=== PATIENT | male | born 1955 | race Two or more races ===

== ENCOUNTER 2018-10-02 15:54 | Emergency (ER) | payer OTHER ==
[~2018-10-02] VITALS: Ht 175.3 cm; Wt 88.5 kg
== END 2018-10-02 22:02 | disposition home or self-care (01) ==
LOC: ER 15:54
DX: K52.89 Other specified noninfective gastroenteritis and colitis (principal)

== ENCOUNTER 2020-04-28 13:41 | Outpatient (CLI) | payer OTHER | END 2020-04-28 13:44 | disposition home or self-care (01) | LOC: LAB 13:41 | DX: N20.0 Calculus of kidney (principal) ==

== ENCOUNTER 2020-04-30 07:32 | Outpatient (CLI) | payer OTHER | END 2020-04-30 07:37 | disposition home or self-care (01) | LOC: TOM 07:32 | PROVIDERS: ATTEND Urology | DX: N20.1 Calculus of ureter (principal) | CPT/HCPCS: 74178; Q9965 ==

== ENCOUNTER 2020-05-21 06:18 | Day surgery (SDC) | payer OTHER | END 2020-05-21 12:00 | disposition home or self-care (01) | LOC: CIR.AMB 06:18 → ADM 10:00 → CIR.AMB 12:00 → ADM 12:45 | PROVIDERS: ATTEND Urology | DX: N20.1 Calculus of ureter (principal) ==

== ENCOUNTER 2020-05-27 07:40 | Outpatient (CLI) | payer OTHER | END 2020-05-27 08:05 | disposition home or self-care (01) | LOC: RAD 07:40 | PROVIDERS: ATTEND Urology | DX: N20.1 Calculus of ureter (principal) ==